=== PATIENT | male | born 1990 | race Caucasian/White ===

== ENCOUNTER 2018-12-21 17:29 | Emergency (ER) | payer OTHER ==
[2018-12-21] MEDS ORDERED: HYOSCYAMINE SULFATE 0.125 MG TAB PO ONE (18:05)
[2018-12-21] MEDS ORDERED: LIDOCAINE 2% VISCOUS 15 ML UDCUP PO ONE (18:05)
[2018-12-21] MEDS ORDERED: ASPIRIN 81 MG CHEWABLE TAB PO ONE (18:05)
[2018-12-21] MEDS ORDERED: MAG HYDROX/AL HYDROX/SIMETH 30 ML UDCUP PO ONE (18:05)
--- NOTE | 2018-12-21 18:52 | EDPHY ---
H & P Time Seen by Provider: 12/21/18 17:47 HPI/ROS: CHIEF COMPLAINT: Chest pain HISTORY OF PRESENT ILLNESS: Patient states that today around 315 he developed some chest pain. He describes it is the mid sternal region. He states he was at the gym doing his normal workout which involves about 10 min walking on a treadmill than lifting weights. He worked on his shoulders today. He states that he did not have any difficulty at the gym today and when he got back to the office afterwards was when the chest discomfort developed. He said it was gradual in onset. He did notice a little tingling in his left hand to the 5th finger but no shoulder or arm pain. He denies any nausea or vomiting. He has had no shortness of breath. He has had no pain to the back. He states he did get sweaty on his way to the emergency department. The pain lasted about 2 hr but he is currently chest pain-free. He said at worst it was maybe for out of 10. He also had similar episode 2 days ago, also following a workout at the gym. He ran a 5K last Tuesday with his fiancee and states that he had no pain or difficulty with that effort. He started acyclovir yesterday for canker sores. He takes an energy drink called "pre workout" that he gets at [facility]. Patient is nonsmoker, uses cannabis and ETOH occasionally. REVIEW OF SYSTEMS: Constitutional: No fever, no chills. Eyes: No discharge. ENT: No sore throat. Cardiovascular: Per HPI Respiratory: No cough, no shortness of breath. Gastrointestinal: No abdominal pain, no vomiting. Genitourinary: No dysuria. Musculoskeletal: No back pain. Skin: No rashes. Neurological: No headache. General Appearance: Alert, no distress. Eyes: Pupils equal and round no pallor or injection. ENT, Mouth: Mucous membranes moist. Respiratory: There are no retractions, lungs are clear to auscultation. Cardiovascular: Regular rate and rhythm. No murmurs rubs or gallops. Normal femoral pulses. Gastrointestinal: Abdomen is soft and nontender, no masses, bowel sounds normal. Neurological: Awake alert, cranial nerves intact, no focal neurologic deficits. Skin: Warm and dry, no rashes. Musculoskeletal: Neck is supple nontender. Extremities are symmetrical, full range of motion, no edema. Psychiatric: Patient is oriented X 3, there is no agitation. Medical/surgical history: Noncontributory Social history: No tobacco, no family history of coronary artery disease, no history of hyperlipidemia although has not been checked recently. Smoking Status: Never smoked Constitutional: Initial Vital Signs Temperature (C) 36.3 C 12/21/18 17:36 Heart Rate 73 12/21/18 17:36 Respiratory Rate 16 12/21/18 17:36 Blood Pressure 132/101 H 12/21/18 17:36 O2 Sat (%) 96 12/21/18 17:36 O2 Delivery Mode Room Air Allergies/Adverse Reactions: No Known Allergies Allergy (Verified 12/21/18 17:35) Home Medications: Medication Instructions Recorded NK [No Known Home Meds] 12/21/18 Medical Decision Making - Diagnostics EKG Interpretation: EKG shows normal sinus rhythm with a rate of 67. Normal axis. Incomplete right bundle-branch block noted. No acute ST T-wave changes to suggest ischemia or infarct. Impression incomplete right bundle branch block, abnormal EKG. Imaging Results: Imaging Impressions Chest X-Ray 12/21/18 18:05 Impression: Possible airways disease. No pneumonia or other source for chest pain. Imaging: I viewed and interpreted images myself ED Course/Re-evaluation: Re-evaluation shows patient continued to be chest pain free and states the GI cocktail gave him some improvement as well. Reviewed his heart score which is 0. Discussed in detail the implications of his low risk state and results of troponin and D-dimer studies. Patient chooses to be discharged at this time and is not interested in repeat testing. Discussed appropriate follow-up with his primary care physician and indications to return. Differential Diagnosis: Differential diagnosis includes but is not limited to acute coronary syndrome, gastroesophageal reflux disease, pulmonary embolism, musculoskeletal chest pain. After evaluation low suspicion for coronary artery disease, pulmonary embolism, other vascular abnormality. Suspect this is likely musculoskeletal in nature although could be element of GERD as well. Nevertheless I referred him back to his primary care physician for recheck and possible referral for stress test as indicated. Given his heart score of 0 chose not to repeat troponin or EKG. Discussed return precautions in detail. Stable for discharge. - Data Points Laboratory Results: 12/21/18 12/21/18 18:23 18:20 POC Sodium 140 mEq/L mEq/L (135-145) POC Potassium 3.2 mEq/L L mEq/L (3.3-5.0) POC Chloride 107.0 mEq/L mEq/L (97-110) POC Total CO2 25 mEq/L mEq/L (22-31) POC BUN 19 mg/dL mg/dL (7-23) POC Creatinine 1.2 mg/dL mg/dL (0.7-1.3) POC Glucose 111 mg/dL H mg/dL (70-100) POC Calcium 9.6 mg/dL mg/dL (8.5-10.4) POC Total Bilirubin 0.7 mg/dL mg/dL (0.1-1.4) POC AST 29 IU/L IU/L (17-59) POC ALT 18 IU/L L IU/L (21-72) POC Alk Phosphatase 79 IU/L IU/L (38-126) POC Troponin I 0.00 ng/mL ng/mL (0.00-0.08) POC Total Protein 7.8 g/dL g/dL (6.3-8.2) POC Albumin 4.0 g/dL g/dL (3.5-5.0) Medications Given: Discontinued Medications Al Hydroxide/Mg Hydroxide (Maalox Susp) 30 ml PO ONCE ONE Stop: 12/21/18 18:06 Last Admin: 12/21/18 18:30 Dose: 30 ml Aspirin (Aspirin) 324 mg PO EDNOW ONE Stop: 12/21/18 18:06 Last Admin: 12/21/18 18:29 Dose: 324 mg Hyoscyamine Sulfate (Levsin, Hyomax-Sl) 0.25 mg PO ONCE ONE Stop: 12/21/18 18:06 Last Admin: 12/21/18 18:31 Dose: 0.25 mg Lidocaine (Lidocaine 2% Viscous) 15 ml PO ONCE ONE Stop: 12/21/18 18:06 Last Admin: 12/21/18 18:31 Dose: 15 ml Point of Care Test Results: CBC CBC Collection Date 12/21/18 CBC Collection Time 18:13 WBC 8.89 RBC 4.99 HGB 14.8 HCT 41.3 PLT 263 Neut # 5.44 Neut 61.3 LYMPH # 2.67 LYMPH 30.0 MCV 82.8 Chemistry 12/21/18 12/21/18 18:23 18:20 POC Sodium 140 mEq/L mEq/L (135-145) POC Potassium 3.2 mEq/L L mEq/L (3.3-5.0) POC Chloride 107.0 mEq/L mEq/L (97-110) POC Total CO2 25 mEq/L mEq/L (22-31) POC BUN 19 mg/dL mg/dL (7-23) POC Creatinine 1.2 mg/dL mg/dL (0.7-1.3) POC Glucose 111 mg/dL H mg/dL (70-100) POC Calcium 9.6 mg/dL mg/dL (8.5-10.4) POC Total Bilirubin 0.7 mg/dL mg/dL (0.1-1.4) POC AST 29 IU/L IU/L (17-59) POC ALT 18 IU/L L IU/L (21-72) POC Alk Phosphatase 79 IU/L IU/L (38-126) POC Troponin I 0.00 ng/mL ng/mL (0.00-0.08) POC Total Protein 7.8 g/dL g/dL (6.3-8.2) POC Albumin 4.0 g/dL g/dL (3.5-5.0) D-Dimer D-Dimer Collection Date 12/21/18 D-Dimer Collection Time 18:13 D-Dimer (ng/ml) <100 Departure - Departure Clinical Impression: Non-cardiac chest pain Condition: Good Instructions: Chest Pain (ED) Additional Instructions: Try Zantac or Prilosec [id number] for heartburn as discussed. Follow up with your primary care physician prior to initiating more vigorous cardiovascular activity. Otherwise your normal workout routine is fine. Please do not hesitate to return to the emergency department if you developed new or more severe symptoms. Referrals: Zurdo Shaffer [Primary Care Provider] - As per Instructions
[2018-12-21 19:11] VITALS: BP 130/70
== END 2018-12-21 19:25 | disposition home or self-care (01) ==
LOC: CED 17:29
DX: R07.9 Chest pain, unspecified (principal); I45.10 Unspecified right bundle-branch block
CPT/HCPCS: 71046-PO; 80053-ER; 84484-ER